=== PATIENT | female | born 1945 | race Caucasian/White ===

== ENCOUNTER 2018-06-12 06:06 | Day surgery (SDC) | payer MEDICARE, BC ==
[2018-06-06 11:28] VITALS: BMI 32.1
[2018-06-12 07:11] LABS: BLOOD UREA NITROGEN 14 mg/dL (7-21); CALCIUM 9.7 mg/dL (8.4-10.5); GFR NON-AFRICAN AMERICAN > 60
[2018-06-12 07:13] LABS: INR 0.96; PARTIAL THROMBOPLASTIN TIME 32.3 Seconds (25.1-36.5)
[2018-06-12 07:15] LABS: BASO # 0.06 K/mm3 (0.0-2.0); BASO % 0.7 % (0.0-3.0); EOS # 0.6 (0.0-0.7); EOS % 6.7 % (1.5-5.0); GRAN # 5.12 (1.4-6.5); GRAN % 56.2 % (50.0-68.0); HEMOGLOBIN 13.4 g/dL (12.0-16.0); LYMPH # 2.6 (1.2-3.4); LYMPH % 28.8 % (22.0-35.0); MEAN CELL VOLUME 91.2 fl (80.0-105.0); MEAN CORPUSCULAR HEMOGLOBIN 29.4 pg (25.0-35.0); MEAN CORPUSCULAR HGB CONC 32.2 g/dl (31.0-37.0); MEAN PLATELET VOLUME 8.4 fl (7.0-11.0); MONO # 0.7 (0.1-0.6); MONO % 7.6 % (1.0-6.0); RBC 4.56 10^6/uL (3.5-6.1); RED CELL DISTRIBUTION WIDTH 13.7 % (11.5-14.5); WHITE BLOOD COUNT 9.1 10^3/uL (4.5-11.0)
[2018-06-12] MEDS ORDERED: Lidocaine 2% Inj (20ml) ONE (07:18)
[2018-06-12] MEDS ORDERED: Iohexol 350mgl/ml 50 ML ONE (07:18)
[2018-06-12] MEDS ORDERED: Iohexol 350 MG/100 ML VIAL ONE (07:18)
[2018-06-12] MEDS ORDERED: Nitroglycerin 50mg in D5W 0 MG/0 ML BOTTLE IV ONE (07:51)
[2018-06-12] MEDS ORDERED: Phenylephrine 10 mg/ml Inj ONE (07:52)
[2018-06-12] MEDS ORDERED: Midazolam 2 MG/2 ML VIAL ONE ×3 (08:18→08:41)
[2018-06-12] MEDS ORDERED: Sodium Chloride 0.9% 1,000 ML IV SCH (09:00)
[2018-06-12 09:19] VITALS: RESP 18; TEMP 97.5
[2018-06-12 09:20] LABS: HDL CHOLESTEROL 37 mg/dL (29-60)
[2018-06-12 09:29] LABS: LDL CHOLESTEROL 114 mg/dL (0-129)
--- NOTE | 2018-06-12 10:07 | CARD ---
APPROVED REPORT Date of service: 06/12/2018 EKG Measurement Heart [id number] [id number] <Conclusion> Sinus rhythm with 1st degree AV block Right bundle branch block Inferior infarct, age undetermined Abnormal ECG
--- NOTE | 2018-06-12 11:15 | CARDCATH ---
PROCEDURE DATE: 06/12/2018 HISTORY: The patient is a 73-year-old woman who presents with exertional shortness of breath. A stress test revealed an ischemic area in the anterior apical segments. The patient suffers from hypertension and questionable hypercholesterolemia. Cardiac catheterization was recommended. PROCEDURE: Left heart catheterization with coronary aortography and left ventriculogram. The right femoral artery was cannulated with 6-[place] sheath. There were no complications. I performed moderate sedation which included the presence of an independent trained observer that assisted in monitoring the patient's level of consciousness and physiologic status. After administration of Versed and fentanyl, my intra service time was 15 minutes. Findings on catheterization revealed left ventricle that contracted normally. Estimated ejection fraction is 60-65%. There was no mitral regurgitation. Her coronary anatomy revealed a right dominant circulation. The RCA was a large vessel that revealed diffuse atherosclerosis without critical lesions. The left main artery was unremarkable. The LAD and diagonal vessels revealed intimal irregularities without critical lesions. Circumflex artery was a small vessel with intimal irregularities without critical lesions. Angio-Seal was used to close the femoral artery site. The patient tolerated the procedure well. In summary, the procedure revealed no critical coronary lesions, there was mild intimal irregularity throughout the coronary tree. LV function is normal. Given these findings, the patient's dyspnea is not of cardiac origin. Given her intimal irregularities, the patient be treated with a baby aspirin and will consider statin therapy after measuring her cholesterol levels. Bruno Dubose MD
[2018-06-12 11:50] VITALS: O2SAT 99
[2018-06-12 13:09] VITALS: BP 103/68; PULSE 56
== END 2018-06-12 14:40 | disposition home or self-care (01) ==
LOC: CATH 06:06
PROVIDERS: ATTEND Internal Medicine Cardiovascular Disease
DX: I20.0 Unstable angina (principal); E78.00 Pure hypercholesterolemia, unspecified; E11.9 Type 2 diabetes mellitus without complications; I10 Essential (primary) hypertension
CPT/HCPCS: 36415; 80048; 80061; 85025; 85610; 85730; 86850; 86900; 93005; 93458; 99152; 99153; C1760; C1769; C2629; J1644; J2250; J3010; J7030; J7040; Q9967